=== PATIENT | male | born 1975 | race Hispanic/Latino ===

== ENCOUNTER 2024-04-23 19:44 | Emergency (ER) | payer SELFPAY ==
[~2024-04-23] VITALS: Ht 172.7 cm; Wt 104.8 kg
[2024-04-23 19:47] VITALS: TEMP 99
[2024-04-23] MEDS: 0.9%NACL 1000ML 1,000 ML IV ONE (20:12)
[2024-04-23] MEDS: ketOROlac 30MG VIAL (30MG/ML) IVP ONE (20:12)
[2024-04-23] MEDS: FAMOTIDINE 20MG VIAL IV ONE (20:12)
[2024-04-23] MEDS: ondanSETRON 4MG INJ IVP ONE (20:12)
[2024-04-23 20:14] LABS: BASOPHILS # (AUTO) 0.04 K/uL (0.00-0.20); BASOPHILS % (AUTO) 0.5 % (0.0-5.0); EOSINOPHILS # (AUTO) 0.17 K/uL (0.00-0.70); EOSINOPHILS % (AUTO) 2.1 % (0.0-8.0); HEMATOCRIT 42.3 % (42-54); IMMATURE GRANULOCYTE ABSOLUTE 0.01 K/uL (0-1); LYMPHOCYTES # (AUTO) 3.4 K/uL (1.0-4.8); LYMPHOCYTES % (AUTO) 42.6 % (21.0-51.0); MEAN CORPUSCULAR HGB CONC 35.7 g/dL (32.0-36.0); MEAN CORPUSCULAR VOLUME 86.9 fL (79-99); MONOCYTES # (AUTO) 0.7 K/uL (0.1-1.0); MONOCYTES % (AUTO) 9.3 % (3.0-13.0); NEUTROPHILS # (AUTO) 3.6 K/uL (1.8-7.7); NEUTROPHILS % (AUTO) 45.4 % (40.0-77.0); PLATELET COUNT (AUTO) 215 K/uL (130-400); RED BLOOD CELL COUNT(AUTO) 4.87 MIL/uL (4.50-6.20); RED CELL DISTRIBUTION WIDTH 12.9 % (11.0-15.5)
[2024-04-23 21:29] VITALS: BP 99/55; PULSE 71; RESP 18; O2SAT 98
[2024-04-23 21:34] LABS: POTASSIUM 3.6 mmol/L (3.5-5.1)
[2024-04-23 21:39] LABS: ALBUMIN 3.6 g/dL (3.5-5.0); BILIRUBIN,TOTAL 0.3 mg/dL (0.2-1.0); TOTAL PROTEIN, SERUM 7.4 g/dL (6.0-8.3)
[2024-04-23 21:46] LABS: APPEARANCE,URINE CLEAR (CLEAR); BILIRUBIN,URINE NEGATIVE (NEGATIVE); COLOR,URINE LIGHT-YELLOW (YELLOW); GLUCOSE, URINE (UA) NEGATIVE (NEGATIVE); KETONES,URINE NEGATIVE (NEGATIVE); LEUKOCYTE ESTERASE ,URINE NEGATIVE Leu/uL (NEGATIVE); NITRATE,URINE NEGATIVE (NEGATIVE); OCCULT BLOOD,URINE NEGATIVE (NEGATIVE); PH,URINE 6.5 (5.0-8.0); PROTEIN,URINE NEGATIVE (NEGATIVE); UROBILINOGEN,URINE 0.2 mg/dL (0.2-1.0)
[2024-04-23] MEDS ORDERED: DICY20TA2 PO (21:47)
[2024-04-23 21:49] LABS: ADD UA MICROSCOPIC NO
== END 2024-04-23 22:13 | disposition home or self-care (01) ==
LOC: EDH 19:44 → EDBD 19:44 → EDH 22:13
DX: K76.0 Fatty (change of) liver, not elsewhere classified (principal); R10.11 Right upper quadrant pain
CPT/HCPCS: 99285; 96374; 76705; 96361; 96375; 80053; 83690; 85025; 81003; 36415; J3490; J7030; J2405; J1885

== ENCOUNTER 2024-09-01 10:20 | Emergency (ER) | payer SELFPAY ==
[~2024-09-01] VITALS: Ht 175.3 cm; Wt 113.4 kg
[~2024-09-01 10:20] MED LIST: DICY20TA2 PO
[2024-09-01 10:44] LABS: APPEARANCE,URINE CLEAR (CLEAR); BILIRUBIN,URINE NEGATIVE (NEGATIVE); COLOR,URINE LIGHT-YELLOW (YELLOW); GLUCOSE, URINE (UA) NEGATIVE (NEGATIVE); KETONES,URINE NEGATIVE (NEGATIVE); LEUKOCYTE ESTERASE ,URINE NEGATIVE Leu/uL (NEGATIVE); NITRATE,URINE NEGATIVE (NEGATIVE); OCCULT BLOOD,URINE NEGATIVE (NEGATIVE); PROTEIN,URINE NEGATIVE (NEGATIVE); UROBILINOGEN,URINE 0.2 mg/dL (0.2-1.0)
[2024-09-01 10:47] LABS: ADD UA MICROSCOPIC NO
--- NOTE | 2024-09-01 10:55 | NUR ---
PT JUST NOW PLACED IN ED BED 5
[2024-09-01 10:56] LABS: BASOPHILS # (AUTO) 0.03 K/uL (0.00-0.20); BASOPHILS % (AUTO) 0.3 % (0.0-5.0); EOSINOPHILS # (AUTO) 0.19 K/uL (0.00-0.70); EOSINOPHILS % (AUTO) 1.9 % (0.0-8.0); HEMATOCRIT 45.6 % (42-54); IMMATURE GRANULOCYTE ABSOLUTE 0.04 K/uL (0-1); LYMPHOCYTES # (AUTO) 2.2 K/uL (1.0-4.8); MEAN CORPUSCULAR HEMOGLOBIN 30.7 pg (27.0-33.0); MEAN CORPUSCULAR HGB CONC 35.1 g/dL (32.0-36.0); MEAN CORPUSCULAR VOLUME 87.4 fL (79-99); MONOCYTES # (AUTO) 0.7 K/uL (0.1-1.0); MONOCYTES % (AUTO) 6.9 % (3.0-13.0); NEUTROPHILS % (AUTO) 68.5 % (40.0-77.0); PLATELET COUNT (AUTO) 220 K/uL (130-400); RED BLOOD CELL COUNT(AUTO) 5.22 MIL/uL (4.50-6.20); RED CELL DISTRIBUTION WIDTH 13.2 % (11.0-15.5); WHITE BLOOD COUNT (AUTO) 10.1 K/uL (4.8-10.8)
[2024-09-01 11:01] LABS: CREATININE 0.8 mg/dL (0.5-1.3); POTASSIUM 4.9 mmol/L (3.5-5.1)
[2024-09-01 11:02] LABS: INFLUENZA TYPE A Negative For Type A (NEGATIVE); INFLUENZA TYPE B Negative For Type B (NEGATIVE)
[2024-09-01 11:14] LABS: SARS-CoV-2, RNA, NAAT NEGATIVE SARS CoV-2 (NEGATIVE)
--- NOTE | 2024-09-01 11:23 | ERN ---
ED Note History of Present Illness Stated Complaint: FEVER,SOAR THROAT,MULTIPLE COMPLAINTS Chief Complaint: Abdominal Pain Time Seen by MD: 10:24 Dictation: 48-year-old male presents to the ED for evaluation of abdominal pain onset a week ago. Patient reports fever, cough, nasal congestion, sore throat, chest pain, and back pain but denies any vomiting or diarrhea at this time. Patient reports he has been experiencing right upper quadrant abdominal pain that radiates to his back and has had these symptoms before. Allergies: Coded Allergies: No Known Allergies (Unverified Allergy, Unknown, 04/23/24) Home Meds Active Scripts Azithromycin (Azithromycin) 250 Mg Tablet, 250 MG PO AD for cough for 5 Days, #6 TAB Prov:CESAR BELCHER MD 09/01/24 Ondansetron (Ondansetron Odt) 4 Mg Tab.rapdis, 4 MG PO BID for vomiting for 5 Days, #10 TAB Prov:CESAR BELCHER MD 09/01/24 Dicyclomine HCl (Bentyl) 20 Mg Tab, 20 MG PO Q6HPRN PRN for ABDOMINAL PAIN, #30 TAB Prov:EDIE LILLY SEED BUYER 04/23/24 Past Medical History Past Medical History: No Pertinent History, Asthma, Pneumonia Surgical History: None Review of System Dictation Constitutional: Positive for fever negative for chills, and weight loss Eyes: Negative for injury, pain,redness, and discharge ENT: Negative for injury,pain or swelling Cardiovascular: Positive for chest pain negative for palpitations, and edema Respiratory: Positive for cough Negative for shortness of breath and wheezing, Abdomen/GI: Positive for abdominal pain Negative for nausea, vomiting, diarrhea, and constipation Back: Positive for back pain negative for injury : Negative for injury, bleeding and discharge MS/Extremity: Negative for injury and deformity Skin: Negative for rash, and discoloration Neuro: Negative for headache, weakness, numbness, tingling, and seizure Psych: Negative for suicide ideation, homicidal ideation, and hallucinations Initial Vital Sign VS Vital Signs Date Time Temp Pulse Resp B/P (MAP) Pulse Ox O2 Delivery O2 Flow Rate FiO2 09/01/24 10:25 98.6 89 16 125/87 97 Room Air 0 09/01/24 11:11 21 Physical Exam Dictation General: awake, alert, NAD Head/Face: Normocephalic, atraumatic Eyes: PERRL, EOMI, vision at baseline ENT: oral cavity clear, TMs clear, no signs of infection Neck: Trachea midline, supple, no nuchal rigidity Cardiovascular: RRR, normal S1/S2, No MRGs, no JVD Respiratory: CTAB, no respiratory distress, No rales or wheezes Abdomen: Soft, non-tender, non-distended, normal bowel sounds, no guarding or rebound. Skin: Warm, dry, normal turgor, no rash MS/Extremity: Pulses equal, no cyanosis, neurovascular intact, FROM Neuro: COAx4, GCS 15, strength 5/5, CN 2-12 intact, normal cerebellar exam, normal gait, Psych: Normal behavior, mood, and affect normal Results (Laboratory/Radiology) Laboratory/Radiology Laboratory Tests Test 09/01/24 10:35 09/01/24 10:36 09/01/24 10:42 Influenza Type A Antigen Negative For Type A Influenza Type B Antigen Negative For Type B SARS-CoV-2, RNA, NAAT NEGATIVE SARS CoV-2 Urine Color LIGHT-YELLOW (YELLOW) Urine Appearance CLEAR (CLEAR) Urine pH 7.0 (5.0-8.0) Urine Specific [place] 1.017 (1.001-1.031) Urine Protein NEGATIVE mg/dL (NEGATIVE) Urine Glucose (UA) NEGATIVE mg/dL (NEGATIVE) Urine Ketones NEGATIVE mg/dL (NEGATIVE) Urine Occult Blood NEGATIVE (NEGATIVE) Urine Nitrate NEGATIVE (NEGATIVE) Urine Bilirubin NEGATIVE mg/dL (NEGATIVE) Urine Urobilinogen 0.2 mg/dL (0.2-1.0) Urine Leukocyte Esterase NEGATIVE Ellen/uL White Blood Count 10.1 K/uL (4.8-10.8) Red Blood Count 5.22 MIL/uL (4.50-6.20) Hemoglobin 16.0 g/dL (14.0-18.0) Hematocrit 45.6 % (42-54) Mean Corpuscular Volume 87.4 fL (79-99) Mean Corpuscular Hemoglobin 30.7 pg (27.0-33.0) Mean Corpuscular Hemoglobin Concent 35.1 g/dL (32.0-36.0) Red Cell Distribution Width 13.2 % (11.0-15.5) Platelet Count 220 K/uL (130-400) Mean Platelet Volume 10.2 fL (7.5-10.5) Immature Granulocyte % (Auto) 0.4 % (0-1) Neutrophils (%) (Auto) 68.5 % (40.0-77.0) Lymphocytes (%) (Auto) 22.0 % (21.0-51.0) Monocytes (%) (Auto) 6.9 % (3.0-13.0) Eosinophils (%) (Auto) 1.9 % (0.0-8.0) Basophils (%) (Auto) 0.3 % (0.0-5.0) Neutrophils # (Auto) 7.0 K/uL (1.8-7.7) Lymphocytes # (Auto) 2.2 K/uL (1.0-4.8) Monocytes # (Auto) 0.7 K/uL (0.1-1.0) Eosinophils # (Auto) 0.19 K/uL (0.00-0.70) Basophils # (Auto) 0.03 K/uL (0.00-0.20) Absolute Immature Granulocyte (auto 0.04 K/uL (0-1) Nucleated Red Blood Cells 0.0 % (0.0-0.19) Sodium Level 137 mmol/L (136-145) Potassium Level 4.9 mmol/L (3.5-5.1) Chloride Level 103 mmol/L (101-111) Carbon Dioxide Level 28 mmol/L (21-32) Blood Urea Nitrogen 9 mg/dL (7-18) Creatinine 0.8 mg/dL (0.5-1.3) Glomerular Filtration Rate Calc 111 mL/min (>90) Random Glucose 122 mg/dL (70-105) H Total Calcium 8.6 mg/dL (8.5-10.1) Total Bilirubin 0.5 mg/dL (0.2-1.0) Direct Bilirubin < 0.1 mg/dL (0.0-0.3) Aspartate Amino Transf (AST/SGOT) 40 U/L (10-37) H Alanine Aminotransferase (ALT/SGPT) 54 U/L (12-78) Alkaline Phosphatase 96 U/L (50-136) Total Protein 7.9 g/dL (6.0-8.3) Albumin 3.4 g/dL (3.5-5.0) L Lipase 28 U/L (16-77) Labs Reviewed?: Yes X-RAY Comment: REASON: COUGH ORDERING PHYSICIAN: CESAR BELCHER MD PROCEDURE: CXR1VW - CHEST 1VW CHEST 1VW CLINICAL HISTORY: COUGH COMPARISON: None TECHNIQUE: Single view of the chest was obtained. FINDINGS: Lungs are clear. The cardiac size and mediastinum are unremarkable. The bony structures are within normal limits. IMPRESSION: No acute cardiopulmonary process identified. DICTATED BY: VIC PAZ DO DATE: 09/01/24 1157 ED Course ED Course Orders Procedure Category Date Status Time Covid Rna Naat LAB 09/01/24 Complete 10:32 Influenza Type A & B, LAB 09/01/24 Complete Rapid 10:32 Urinalysis Profile LAB 09/01/24 Complete 10:33 Chest 1vw RAD 09/01/24 Resulted 10:33 Cbc With Differential LAB 09/01/24 Complete 10:33 Lipase LAB 09/01/24 Complete 10:33 Basic Metabolic Panel LAB 09/01/24 Complete 10:33 Hepatic Function Panel LAB 09/01/24 Complete 11:23 Ketorolac PHA 09/01/24 Complete Tromethamine 15mg/Ml 11:30 0.9%Nacl 1000ml (Ns PHA 09/01/24 Complete 1000ml) 11:30 12 Lead Ekg Tracing- EKG 09/01/24 Logged Technical 12:43 Current Medications Medications (Trade) Dose Ordered Sig/Lane Route PRN Reason Start Time Stop Time Status Last Admin Dose Admin Ketorolac Tromethamine (toRADol) 15 mg ONCE ONCE IV 09/01/24 11:30 09/01/24 11:31 DC 09/01/24 11:40 Sodium Chloride 1,000 ml @ 0 mls/hr ONCE ONCE IV 09/01/24 11:30 09/01/24 11:31 DC 09/01/24 11:39 Vital Signs Date Time Temp Pulse Resp B/P (MAP) Pulse Ox O2 Delivery O2 Flow Rate FiO2 09/01/24 12:45 98.6 82 16 127/84 97 Room Air* 0 09/01/24 11:11 98.6 87 16 125/87 97 Room Air* 0 09/01/24 10:25 98.6 89 16 125/87 97 Room Air 0 Medical Decision Making MDM MDM: Differential diagnosis: URI, abdominal pain Rationale: Tests considered and ordered secondary to shared decision making include: Previous outside records reviewed: Old ER visits. Risk of complication and/or morbidity or mortality of patient management: None Medications-Per medication reconciliation Need for hospitalization: Patient does not meet criteria for hospitalization. Need for emergency major/minor surgery: No There are no social concerns with this patient. Prescription drug management Prescriptions will include symptomatic care Patient's prior external medical records from other ER visits were reviewed by me as indicated. Prior testing and results from previous visits were reviewed. Prior tests were taken into account with medical decision making and resource utilization, independent historian/historians were used to obtain complete medical history. I independently interpreted the test that were performed, results were reviewed by me and considered findings on radiology if ordered. Medical management and examination interpretation discussions were had by me with other qualified healthcare professionals as indicated for the patient's care. DX & DISP Disposition: Discharge Departure Impression: Primary Impression: Acute URI Condition: Stable Scripts Azithromycin (Azithromycin) 250 Mg Tablet 250 MG PO AD for cough for 5 Days, #6 TAB Prov: CESAR BELCHER MD 09/01/24 Ondansetron (Ondansetron Odt) 4 Mg Tab.rapdis 4 MG PO BID for vomiting for 5 Days, #10 TAB Prov: CESAR BELCHER MD 09/01/24 Referrals: NONE (PCP) CESAR BELCHER MD Sep 01, 2024 11:22
[2024-09-01] MEDS: 0.9%NACL 1000ML 1,000 ML IV ONE (11:39)
[2024-09-01] MEDS: ketOROlac 15MG/ML VIAL (15MG/ML) IV ONE (11:40)
[2024-09-01 11:44] LABS: ALANINE AMINOTRANSFERASE 54 U/L (12-78); ALBUMIN 3.4 g/dL (3.5-5.0); ASPARTATE AMINOTRANSFERASE 40 U/L (10-37); BILIRUBIN,DIRECT < 0.1 mg/dL (0.0-0.3); BILIRUBIN,TOTAL 0.5 mg/dL (0.2-1.0); TOTAL PROTEIN, SERUM 7.9 g/dL (6.0-8.3)
--- NOTE | 2024-09-01 12:05 | HMCIMG ---
CHEST 1VW CLINICAL HISTORY: COUGH COMPARISON: None TECHNIQUE: Single view of the chest was obtained. FINDINGS: Lungs are clear. The cardiac size and mediastinum are unremarkable. The bony structures are within normal limits. IMPRESSION: No acute cardiopulmonary process identified.
[2024-09-01] MEDS ORDERED: AZIT250T9 PO (12:15)
[2024-09-01] MEDS ORDERED: ONDA-243 PO (12:15)
[2024-09-01 12:45] VITALS: BP 127/84; PULSE 82; RESP 16; TEMP 98.6; O2SAT 97
--- NOTE | 2024-09-01 20:54 | EKG ---
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
== END 2024-09-01 12:57 | disposition home or self-care (01) ==
LOC: EDH 10:20
DX: J06.9 Acute upper respiratory infection, unspecified (principal); Z20.822 Contact with and (suspected) exposure to COVID-19
CPT/HCPCS: 99285; 96374; 71045; 87635; 80076; 80048; 83690; 85025; 87804 ×2; 81003; 36415; 93005; J1885; J7030